=== PATIENT | female | born 1935 | race Caucasian/White ===

== ENCOUNTER 2020-12-31 03:45 | Inpatient (IN) | payer MEDICARE, OTHER ==
[~2020-12-31] VITALS: Ht 167.6 cm; Wt 93.6 kg
[2020-12-31 04:16] LABS: BASOPHILS ABSOLUTE AUTO 0.04 K/mm3 (0.00-0.23); BASOPHILS PERCENT AUTO 1 % (0-2); EOSINOPHILS ABSOLUTE AUTO 0.01 K/mm3 (0.00-0.68); EOSINOPHILS PERCENT AUTO 0 % (0-6); Hematocrit 49.7 % (33.0-51.0); Hemoglobin 15.8 g/dL (11.5-16.0); IMMATURE GRAN ABSOLUTE AUTO 0.05 K/mm3 (0.00-0.10); IMMATURE GRAN PERCENT AUTO 1 % (0-1); LYMPHOCYTES ABSOLUTE AUTO 0.51 K/mm3 (0.84-5.20); LYMPHOCYTES PERCENT AUTO 6 % (21-46); MONOCYTES ABSOLUTE AUTO 0.37 K/mm3 (0.16-1.47); MONOCYTES PERCENT AUTO 5 % (4-13); Mean Corpuscular HGB 31.4 pg (26.0-34.0); Mean Corpuscular HGB Conc 31.8 g/dL (31.5-36.5); Mean Corpuscular Volume 99 fL (80-100); NEUTROPHILS ABSOLUTE AUTO 7.18 K/mm3 (1.96-9.15); NEUTROPHILS PERCENT AUTO 88 % (41-73); Platelet Count 177 K/mm3 (150-400); RDW Coefficient Variation 13.5 % (11.7-14.2); RDW Standard Deviation 49.5 fL (35.1-46.3); Red Blood Cell Count 5.03 M/mm3 (3.80-5.20); White Blood Cell Count 8.16 K/mm3 (4.00-11.30)
[2020-12-31 04:35] LABS: Alanine Aminotransfer (ALT/SGP 14 U/L (12-78); Albumin/Globulin Ratio 0.8 (0.8-1.8); Alk Phos 106 U/L (50-136); Anion Gap 7 mmol/L (6-16); Aspartate Aminotrans (AST/SGOT 19 U/L (12-37); Bilirubin, Total 2.1 mg/dL (0.1-1.0); Blood Urea Nitrogen 14 mg/dL (8-24); Bun/Creatinine Ratio 18.2 (12.0-20.0); CO2, Blood 25 mmol/L (21-32); Calcium, Blood 8.4 mg/dL (8.5-10.1); Chloride, Blood 111 mmol/L (98-108); Creatinine, Blood 0.77 mg/dL (0.40-1.00); Globulin, Blood 3.6 g/dL (2.2-4.0); Glomerular Filtration Rate >60 (60-); Glucose, Blood 116 mg/dL (70-99); Potassium, Blood 4.1 mmol/L (3.5-5.5); Sodium, Blood 143 mmol/L (136-145); Total Protein, Blood 6.6 g/dL (6.4-8.2); Troponin I 0.028 ng/mL (0.000-0.040)
[2020-12-31] MEDS ORDERED: Bentyl20 MG PO (04:46)
[2020-12-31] MEDS ORDERED: AMLODIPINE-OLM1 EAC2 PO (04:46)
[2020-12-31] MEDS ORDERED: LOSA50 PO (04:47)
[2020-12-31] MEDS ORDERED: METO50ER PO (04:47)
[2020-12-31] MEDS ORDERED: LEVSOD25 PO (04:48)
[2020-12-31] MEDS ORDERED: FURO20 PO (04:49)
[2020-12-31] MEDS ORDERED: Hydrocortisone10 MG PO (04:49)
[2020-12-31 04:54] LABS: International Normalized Ratio 1.33
[2020-12-31 05:07] LABS: PCO2 Arterial 57.2 mmHg (35-45); PO2 Arterial 99.8 mmHg (80-100); pH Blood Arterial 7.21 (7.35-7.45)
--- NOTE | 2020-12-31 06:50 | NUR ---
RIGHT 20G PERIPHERAL IV IN THE FOREARM FLUSHING WELL WITHOUT RESISTANCE, AND DRAWS BLOOD GREAT. LEVOPHED AT 17 MCG/MIN UPON ARRIVAL TO ICU AT 0619, BUT DOWN TO 15 OF 635.
[2020-12-31 07:16] LABS: Source, Urine Catheter
[2020-12-31 07:20] LABS: Appearance, Urine Clear (Clear); Bilirubin, Urine Neg (Neg); Blood, Urine 2+ (Neg); Color, Urine Yellow (P-Yellow); Glucose Qualitative, Urine Neg (Neg); Ketones, Urine 1+ (Neg); Leukocyte Esterase, Urine Neg (Neg); Nitrite, Urine Neg (Neg); Protein, Urine Neg (Neg); Urobilinogen, Urine NORM (Normal)
--- NOTE | 2020-12-31 07:30 | NUR ---
PT ARRIVES IN ICU AT 0619, SHE IS AWAKE, AGITATED, CONFUSED AND COMBATIVE. SHE WAS IN SWB RESTRAINTS WHICH WERE SECURED TO BED. LEVOPHED INFUSING AT 17 MCG/MIN UPON ARRIVAL TO ICU, IT WAS DIFFICULT TO GET A BLOOD PRESSURE ON HER, AND EVENTUALLY GOT ONE ON HER RIGHT LOWER LEG. SBP 140s. MAP 80-90s. LEVOPHED IS INFUSING VIA HER RIGHT PERIPHERAL IV, WHICH FLUSHES WELL, AND HAS GOOD BLOOD RETURN. SITE LOOKS WNL. LEFT IV WAS REMOVED, BECAUSE IT HAD SLIGHTLY INFILTRATED AND WAS BLEEDING. NS WAS THEN PLACED ON STANDBY. DR. NEIL SAID HE WAS UNABLE TO COME IN TO PLACE A CVC, SO HE STATED IT WAS OKAY TO USE THE PERIPHERAL IV TO INFUSE LEVOPHED TILL A PICC LINE CAN BE INSERTED THIS MORNING. HE INSTRUCTED TO AVOID GOING ABOVE 20MCG/MIN UNLESS ABSOLUTLEY HAVING TOO. LEVOPHED HAS BEEN TITRATED DOWN TO 13 MCG/MIN. SHE IS IN AFIB RATE IN THE 70s. BP IS STABLE, MAP > 60. AFEBRILE. PT ON BIPAP 16/8, 35% FIO2, BACK UP RATE 16 BREATHS/MIN. SHE HAD RECEIVED 0.5 MG OF VERSED -JUST PRIOR TO THE IV BEING REMOVED, SO THIS RN IS UNSURE IF SHE GOT THE FULL DOSE OF THE MEDICATION. ALTHOUGH THE PT HAS CALMED DOWN, AND HAS BEEN SLEEPING AFTER WE STOPPED STIMULATED HER. CURRENTLY THE DAY FACULTY ADMINISTRATOR IS PLACING A PICC LINE. REPORTED OFF TO DAY RN, WALTER.
--- NOTE | 2020-12-31 07:30 | NUR ---
ASSUMED CARE: REPORT RECEIVED FROM ANANT Vargas RN. ASSUMED CARE OF THIS PT AT APPROX 0700. ON ASSESSMENT, THE PT IS RESTING QUIETLY. BILAT SOFT WRIST RESTRAINTS IN PLACE TO PREVENT PT FROM REMOVING BIPAP MASK. LS COARSE T/O, PT ON BIPAP W/ SETTINGS: 16/8, RATE 16 & FIO2 35%. O2 SATS > 92%. MONITOR SHOWS AFIB W/ HR 70s, LEVOPHED INFUSING AT 13 MCG/MIN FOR HYPOTENSION. BT HYPOACTIVE, PT NPO R/T AMS. WILKERSON PATENT/ DRAINING DARK YELLOW URINE. SKIN CONDITION OVERALL FRAGILE, INTACT. WILL CONTINUE TO MONITOR & UPDATE NEEDED.
[2020-12-31 07:31] LABS: U Amphetamine Screen Not Detected; U Barbituate Screen Not Detected; U Benzodiazapine Screen Not Detected; U Buprenorphine Screen Not Detected; U Cannabinoids Screen Not Detected; U Cocaine Screen Not Detected; U Methadone Screen Not Detected; U Methamphetamine Screen Not Detected; U Opiates Screen Not Detected; U Oxycodone Screen Not Detected; U Phencyclidine Screen Not Detected; U Propoxyphene Screen Not Detected
[2020-12-31 07:32] LABS: Bacteria Not Seen /hpf; Red Blood Cells, Urine 0-2 /hpf (0-2); Squamous Epithelial Cells Not Seen /hpf (Few); White Blood Cells, Urine Not Seen /hpf (0-5)
--- NOTE | 2020-12-31 08:15 | NUR ---
PICC LINE PLACEMENT: PICC LINE HAS BEEN PLACED TO JANEEN BY PARUL Shay RN. CXR COMPLETED FOR PLACEMENT VERIFICATION R/T AFIB. CXR HAS BEEN READ BY DR GARCIA, RADIOLOGIST, & PLACEMENT VERIFIED OKAY FOR USE.
[2020-12-31 08:28] LABS: Free Thyroxine 1.54 ng/dL (0.70-1.60); Thyroid Stimulating Hormone 0.839 uIU/mL (0.360-4.800)
--- NOTE | 2020-12-31 12:28 | NUR ---
DR PATIÑO: PROVIDER HAS BEEN AT BEDSIDE TO BRIANNA PT. STS OKAY TO CHANGE CODE STATUS ORDER TO DNR. THE PT's DAUGHTER, ANGELITA, HAS INFORMED THIS RN THAT THE PT WISHES TO BE A DNR. [facility], THE FACILITY AT WHICH THE PT LIVES, HAS FAXED PAPERWORK SHOWING DNR STATUS FOR THIS PT ALSO, ORDERS PLACED.
[2020-12-31 16:11] LABS: Albumin, Blood 2.6 g/dL (3.4-5.0); Anion Gap 8 mmol/L (6-16); Blood Urea Nitrogen 13 mg/dL (8-24); Bun/Creatinine Ratio 19.2 (12.0-20.0); CO2, Blood 23 mmol/L (21-32); Calcium, Blood 8.3 mg/dL (8.5-10.1); Chloride, Blood 112 mmol/L (98-108); Creatinine, Blood 0.68 mg/dL (0.40-1.00); Glomerular Filtration Rate >60 (60-); Glucose, Blood 149 mg/dL (70-99); Magnesium, Blood 1.6 mg/dL (1.6-2.4); Phosphorus, Blood 3.4 mg/dL (2.5-4.9); Potassium, Blood 4.4 mmol/L (3.5-5.5); Sodium, Blood 143 mmol/L (136-145)
--- NOTE | 2020-12-31 18:39 | NUR ---
SHIFT SUMMARY: PT's MENTATION CONTINES TO CLEAR WELL THIS AFTERNOON, ALTHOUGH SHE DOES NEED REMINDERS FOR PURPOSE OF NASAL CANNULA SO THAT SHE WILL LEAVE IT IN PLACE & SHE RESPONDS WELL TO THIS VERBAL REDIRECTION. SHE IS PLEASANT & COOPERATIVE THIS EVENING & STS FEELING "BETTER." LS REMAIN COARSE, PT HAS A MOIST COUGH W/ NO SPUTUM VISUALIZED. CURRENTLY ON 3L NC W/ O2 SATS > 92%, DESATS TO 87% NOTED WHEN PT REMOVES NC. MONITOR SHOWS AFIB W/ HR 70-80s, BP IMPROVED W/ LEVOPHED TITRATED DOWN, CURRENTLY INFUSING AT 2 MCG/MIN. THE PT HAS NO GI COMPLAINTS & WAS ABLE TO TOLERATE A BEDSIDE SWALLOW EVAL WELL. WILKERSON PATENT/ DRAINING DARK YELLOW URINE - SEE I&O. SKIN OVERALL INTACT, MICONAZOLE POWDER ORDERED FOR SUBSTANTIAL REDNESS & YEAST NOTED TO ABDOMINAL FOLDS. WILL CONTINUE TO MONITOR & REPORT OFF TO ONCOMING RN.
--- NOTE | 2020-12-31 19:40 | NUR ---
ASSUMED CARE REPORT RECEIVED FROM WALTER NOEL. PT AWAKE, LEVO GTT INFUSING AT 2 MCG/MIN, NC @ 5 LPM. VITALS STABLE. CONTINUE CARE.
--- NOTE | 2021-01-01 00:10 | NUR ---
ONGOING ASSESSMENT PT AWAKE, FOLLOWS, CAN ASSIST IN TURNING. ATTEMPTED TO WEAN LEVO OFF,PLACED BACK ON DUE TO DECREASED MAP. CONTINUE TO ASSESS AND TREAT NEEDED.
[2021-01-01 03:31] LABS: BASOPHILS ABSOLUTE AUTO 0.01 K/mm3 (0.00-0.23); BASOPHILS PERCENT AUTO 0 % (0-2); EOSINOPHILS PERCENT AUTO 0 % (0-6); Hematocrit 42.4 % (33.0-51.0); Hemoglobin 14.1 g/dL (11.5-16.0); IMMATURE GRAN ABSOLUTE AUTO 0.04 K/mm3 (0.00-0.10); IMMATURE GRAN PERCENT AUTO 0 % (0-1); LYMPHOCYTES ABSOLUTE AUTO 0.45 K/mm3 (0.84-5.20); LYMPHOCYTES PERCENT AUTO 4 % (21-46); MONOCYTES ABSOLUTE AUTO 0.49 K/mm3 (0.16-1.47); MONOCYTES PERCENT AUTO 4 % (4-13); Mean Corpuscular HGB Conc 33.3 g/dL (31.5-36.5); Mean Corpuscular Volume 96 fL (80-100); Mean Platelet Volume 10.6 fL (9.1-12.4); NEUTROPHILS PERCENT AUTO 91 % (41-73); Platelet Count 162 K/mm3 (150-400); RDW Coefficient Variation 13.2 % (11.7-14.2); White Blood Cell Count 11.09 K/mm3 (4.00-11.30)
[2021-01-01 03:46] LABS: Anion Gap 5 mmol/L (6-16); Blood Urea Nitrogen 13 mg/dL (8-24); CO2, Blood 26 mmol/L (21-32); Calcium, Blood 8.6 mg/dL (8.5-10.1); Chloride, Blood 113 mmol/L (98-108); Creatinine, Blood 0.62 mg/dL (0.40-1.00); Glomerular Filtration Rate >60 (60-); Glucose, Blood 109 mg/dL (70-99); Magnesium, Blood 1.6 mg/dL (1.6-2.4); Phosphorus, Blood 2.4 mg/dL (2.5-4.9); Potassium, Blood 4.4 mmol/L (3.5-5.5); Sodium, Blood 144 mmol/L (136-145)
--- NOTE | 2021-01-01 04:07 | NUR ---
REASSESSMENT PT AWAKE/ALERT FOLLOWING. PT OOB WITH ASSIST AND WALKER TO CHAIR. LEVO GTT OFF. CONTINUE 3 L N/C.
[2021-01-01 05:25] LABS: PCO2 Arterial 44.2 mmHg (35-45); PO2 Arterial 68.9 mmHg (80-100); pH Blood Arterial 7.34 (7.35-7.45)
--- NOTE | 2021-01-01 07:30 | NUR ---
PT RECEIVED FROM SADIE PORRAS. PT RESTING IN BED, SLOW TO RESPOND. SOME ANSWERS NOT JIVING WITH THE QUESTION. PT UNSURE OF SITUATION, SOME DETAILS CORRECT. LUNGS ARE DIMINISHED, BOWEL TONES ACTIVE, PULSES WEAK, SKIN DRY,FLAKY. O2 VIA NASAL CANNULA @ 3L. PICC LINE JANEEN,PERIFERAL LINE RFA, SALINE LOCKED. WILKERSON TO GRAVITY DRAINAGE, SMALL AMOUNT OF DARK PRESTON RETURN.
--- NOTE | 2021-01-01 09:54 | NUR ---
PT UP IN THE CHAIR, HAS SEEN. PT CONTINUES TO BE SLIGHTLY DISORIENTED. SHE IS PLEASANT AND COOPERATIVE. ASKING ABOUT HER PURSE, DOESN'T REMEMBER COMING FROM [place]. C/O LEG CRAMPING. BP CUFF ON THAT LEG, REMOVED. LEG MASSAGED.
--- NOTE | 2021-01-01 12:11 | NUR ---
SITTING UP EATING HER LUNCH, SHE HEARD THE MONITOR ALARM AND WAS TRYING TO ANSWER HER PHONE. EXPLAINED TO HER THAT IT WAS THE MONITOR. SHOWED HER HOW TO USE HER PHONE.
--- NOTE | 2021-01-01 16:12 | NUR ---
LINNETTE IS DOING WELL, SHE HAD P/T WORKUP AROUND 1400, HER DAUGHTER CAME IN AT THE END OF HER TREATMENT, SHE HAS BEEN UP IN THE CHAIR, VISITING AND DOING VERY WELL MENTATION RUANO. SHE IS JOVIAL AND ENGAGING. HER BREATHING IS BETTER SITTING UP, LESS WORK OF BREATHING, SNEEZES OCC NO COUGH NOTED. CONT@ 4L/NC.
--- NOTE | 2021-01-01 16:50 | NUR ---
REPORT CALLED TO SADIE MOJICA. PT UNDERSTANDS THE REASON FOR TRANSFER. STILL VISITING WITH HER DAUGHTER, REMAINS MUCH CLEARER HEADED THIS AFTERNOON.
--- NOTE | 2021-01-01 21:33 | NUR ---
1939 PT RESTING COMFORTABLY IN BED; PT ALERT AND ORIENTED X 1, ABLE TO FOLLOW SIMPLE VERBAL COMMANDS; PTS THOUGHT PROCESS DISORGANIZED AT TIMES AND REQUIRES FREQUENT REDIRECTION FROM STAFF; BED ALARM APPLIED FOR SAFETY.
--- NOTE | 2021-01-02 03:55 | NUR ---
SHIFT SUMMARY: 85 Y/O OBESE FEMALE HAD RESTLESS NIGHT 3/4 SHIFT WITH PATIENT VERY RESTLESS; PT WAS GIVEN HALDOL 2MG IVP WHICH ASSISTED FOR TWO HOURS, WHEN PT AWOKE AGAIN SHE KEPT ATTEMPTING CLIMB OOB WITH KARI VEST APPLIED; PT IS CONFUSED, ALERT AND ORIENTED X 1; WILKERSON DRAINING TEA COLORED FLUID; PT WEARING O2 AT 4L/M VIA NASAL CANNULA; BED ALARM APPLIED FOR SAFETY, BED LOW POSITION WITH CALL LIGHT AT SIDE.
[2021-01-02 07:52] LABS: Albumin, Blood 2.9 g/dL (3.4-5.0); Anion Gap 3 mmol/L (6-16); Blood Urea Nitrogen 19 mg/dL (8-24); Bun/Creatinine Ratio 28.5 (12.0-20.0); CO2, Blood 29 mmol/L (21-32); Calcium, Blood 8.9 mg/dL (8.5-10.1); Chloride, Blood 112 mmol/L (98-108); Creatinine, Blood 0.67 mg/dL (0.40-1.00); Glomerular Filtration Rate >60 (60-); Glucose, Blood 139 mg/dL (70-99); Magnesium, Blood 1.9 mg/dL (1.6-2.4); Phosphorus, Blood 2.1 mg/dL (2.5-4.9); Potassium, Blood 4.5 mmol/L (3.5-5.5); Sodium, Blood 144 mmol/L (136-145)
--- NOTE | 2021-01-02 19:09 | NUR ---
IT WAS REPORTED THAT THE PATIENT WAS CONFUSED FOR WAX SPECIALIST AND KARI/HALDOL WAS USED. PT REMAINED ASLEEP UNTIL 2PM. WHEN AWAKE SHE WAS ALERT AND ORIENTED TO SELF, FAMILY AND SITUATION, NOT TO DATE/TIME OR LOCATION. PT IS UP IN HER CHAIR WATCHING TV, MAKING NO COMPLAINTS. NO ALRMS WERE SET OFF THIS SHIFT AND PT WAS COOPERATIVE. STAFF WILL CONT. TO MONITOR.
--- NOTE | 2021-01-03 03:57 | NUR ---
ROOFER METAL SUMMARY PT A&O TO SELF, FAMILY AND SITUATION, PLEASANT AND COOPERATIVE TO CARE. NO ACUTE CHANGES IN BEHAVIOR OR MOOD THIS SHIFT. PT REPORTED HAVING TROUBLE SLEEPING AT NIGHT, NOTIFIED HOSPITALIST , PT GIVEN 1X DOSE OF TRAZODONE 25MG PO ORDERED. PT CALM AND RESTED IN BED T/O SHIFT. NO C/O PAIN. NO C/O CP, SOB, OR N&V. PT 1P ASSIST W/ TRANSFERS AND W/ BED MOBILITY. BED AT LOWEST POSITION. CALL LIGHT WITHIN REACH.
[2021-01-03] MEDS ORDERED: DULCOLAX400 MG/5 M PO (11:15)
[2021-01-03] MEDS ORDERED: SPIRIVA RESPIMAT4 G3 INH (11:15)
[2021-01-03] MEDS ORDERED: Acetaminophen325 M1 PO (11:16)
[2021-01-03] MEDS ORDERED: ATOR20 PO (11:21)
[2021-01-03] MEDS ORDERED: HYDCOR10 PO (11:23)
[2021-01-03] MEDS ORDERED: Q-Tussin100 MG/5 M PO (11:24)
[2021-01-03] MEDS ORDERED: AMLO5 PO (11:25)
[2021-01-03] MEDS ORDERED: ELIQUIS5 MG PO (11:27)
--- NOTE | 2021-01-03 18:43 | NUR ---
SHIFT SUMMARY PATIENT ALERT, ORIENTED X3 THIS SHIFT. PATIENT PLEASANT AND COOPERATIVE WITH CARE. PATIENT WORKED WITH PT/OT THIS SHIFT. PATIENT DENIES PAIN THIS SHIFT. PATIENT UP IN CHAIR FOR MOST OF THIS SHIFT. WILKERSON REMAINS IN PLACE FOR STRICT I/Os PATIENT NAPPED THROUGH THE AFTERNOON. PATIENT CURRENTLY UP IN CHAIR EATING DINNER.
[2021-01-04 10:42] LABS: Influenza A, PCR NEGATIVE (NEGATIVE); Influenza B, PCR NEGATIVE (NEGATIVE); Resp Syncytial Virus, PCR NEGATIVE (NEGATIVE); SARS-Cov-2 (COVID-19) PCR, MMC NEGATIVE (NEGATIVE)
--- NOTE | 2021-01-04 12:32 | NUR ---
DISCHARGE NOTE PATIENT DISCHARGED HOME TO [facility] ASSISTED LIVING. PATIENT ALERT AND ORIENTED THIS SHIFT. PATIENT UP WITH STANDBY ASSIST WITH FWW THIS SHIFT. WILKERSON AND PICC LINE REMOVED PRIOR TO DISCHARGE. O2 EVALUATION COMPLETED THIS SHIFT, PATIENT NEEDS 2L O2 AT REST AND 4L O2 WITH ACTIVITY. PATIENT TRANSPORTED BY [facility]. PATIENT BELONGINGS WITH PATIENT UPON DISCHARGE. REPORT CALLED TO [facility].
== END 2021-01-04 12:10 | disposition home or self-care (01) | DRG 643 ==
LOC: ER 03:45 → MEDS 04:41 → ICUW 04:41 → ICUE 04:41 → MEDS 01-01 17:02
PROVIDERS: Emergency Medicine; Internal Medicine; Internal Medicine Critical Care Medicine; ADMIT Internal Medicine
PROC: 3E033XZ Introduction of Vasopressor into Peripheral Vein, Percutaneous Approach (ICD-10-PCS; principal; 2020-12-31)
PROC: 5A09457 Assistance with Respiratory Ventilation, 24-96 Consecutive Hours, Continuous Positive Airway Pressure (ICD-10-PCS; 2020-12-31)
PROC: 02HV33Z Insertion of Infusion Device into Superior Vena Cava, Percutaneous Approach (ICD-10-PCS; 2020-12-31)
PROC: 3E02340 Introduction of Influenza Vaccine into Muscle, Percutaneous Approach (ICD-10-PCS; 2020-12-31)
DX: E27.2 Addisonian crisis (principal); R57.8 Other shock; J96.01 Acute respiratory failure with hypoxia; J96.02 Acute respiratory failure with hypercapnia; G93.41 Metabolic encephalopathy; I50.33 Acute on chronic diastolic (congestive) heart failure; I48.20 Chronic atrial fibrillation, unspecified; E87.2 Acidosis; I67.89 Other cerebrovascular disease; Z66 Do not resuscitate; J44.9 Chronic obstructive pulmonary disease, unspecified; E86.0 Dehydration; R62.7 Adult failure to thrive; I11.0 Hypertensive heart disease with heart failure; E03.9 Hypothyroidism, unspecified; R45.1 Restlessness and agitation; E83.39 Other disorders of phosphorus metabolism; G47.33 Obstructive sleep apnea (adult) (pediatric); Z79.01 Long term (current) use of anticoagulants; Z91.14 Patient's other noncompliance with medication regimen
CPT/HCPCS: 0241U; 36415; 36569; 36600; 51702; 70450; 71045; 80048; 80053; 80069; 81001; 82330; 82803; 83605; 83735; 83880; 84100; 84439; 84443; 84484; 85025; 85610; 93005; 93010; 93306; 94640; 94660; 94760; 94761; 96365; 97110; 97116; 97161; 97165; 97530; 99285-25; A9270; C1751; J1630; J1650; J1720; J2250; J7030; J7060